=== PATIENT | female | born 1965 | race Caucasian/White ===

== ENCOUNTER 2020-12-25 09:48 | Observation (INO) ==
[2020-12-25] MEDS ORDERED: hydrALAZINE 20 MG/1 ML VIAL IV STA (10:18)
[2020-12-25] MEDS ORDERED: ASPIRIN 325 MG TABLET PO STA (10:23)
[2020-12-25 10:25] LABS: Basophils % 0.5 % (0.0-0.8); Eosinophils # 0.2 10*3/uL (0.0-0.87); Hematocrit 44.4 VOL% (35.7-47.0); Hemoglobin 14.3 GM/DL (12.0-16.0); Immature Granulocytes % 0.3 %; Immature Granulocytes Absolute 0.02 #; Lymphocytes # 1.4 10*3/uL (1.4-4.0); Lymphocytes % 21.8 % (21.3-54.2); Mean Corpuscular HGB Conc 32.2 GM/DL (32-36); Mean Corpuscular Volume 83.8 FL (87-102); Mean Platelet Volume 9.6 FL (9.6-12.0); Monocytes % 5.9 % (1.7-12.7); Neutrophils % 68.5 % (38.7-73.9); Platelet Count 260 T/CUMM (130-400); Red Cell Distribution Width 13.3 % (9.3-17.3); White Blood Count 6.2 T/CUMM (4-12)
[2020-12-25 10:41] LABS: INR 0.9; PT Patient Result 9.9 SECS (9.8-11.9); Partial Thromboplastin Time 25.7 SECS (23.9-33.8)
[2020-12-25] MEDS ORDERED: LORazepam 2 MG/1 ML VIAL IV STA (10:56)
[2020-12-25] MEDS ORDERED: LORazepam 2 MG/1 ML VIAL ONE (10:57)
[2020-12-25 11:10] LABS: Albumin 3.7 G/DL (3.4-5.0); Bilirubin,Total 0.9 MG/DL (0.2-1.0); Calcium 9.3 MG/DL (8.5-10.1); Osmolality,Calculated 277.5 MOS/KG (273-304); Potassium 3.8 MMOL/L (3.5-5.1); Total Protein 7.3 G/DL (5.0-7.5)
[2020-12-25] MEDS ORDERED: DEXTROSE 50% 25 GM/50 ML VIAL IV PRN (12:07)
[2020-12-25] MEDS ORDERED: hydrALAZINE 20 MG/1 ML VIAL IV PRN (12:07)
[2020-12-25] MEDS ORDERED: ONDANSETRON 4 MG/2 ML VIAL IV PRN (12:07)
[2020-12-25] MEDS ORDERED: GLUCAGON 1 MG VIAL IM PRN (12:07)
[2020-12-25] MEDS ORDERED: LORazepam 0.5 MG TABLET PO PRN (12:07)
[2020-12-25] MEDS ORDERED: LORazepam 1 MG TABLET PO PRN (12:29)
[2020-12-25] MEDS: ACETAMINOPHEN 325 MG TABLET PO PRN (19:30)
[2020-12-25] MEDS: ENOXAPARIN 40 MG/0.4 ML SYRINGE SUBCUT SCH (21:38)
[2020-12-26 06:05] LABS: Risk Ratio 4.53; Thyroid Stimulating Hormone 1.47 uIU/ml (0.358-3.74); VLDL CHOLESTEROL 38.4 MG/DL
[2020-12-26] MEDS ORDERED: LORazepam 2 MG/1 ML VIAL IV ONE (08:52)
[2020-12-26] MEDS ORDERED: ASPIRIN EC 325 MG TABLET PO SCH (09:00)
[2020-12-26] MEDS: ASPIRIN EC 81 MG TABLET PO SCH (09:38)
[2020-12-26] MEDS: PANTOPRAZOLE 40 MG TABLET PO SCH (09:38)
[2020-12-26] MEDS: ATORVASTATIN 40 MG TABLET PO SCH (09:38)
[2020-12-26] MEDS ORDERED: amLODIPine 5 MG TABLET PO SCH (17:00)
[2020-12-26] MEDS: amLODIPine 10 MG TABLET PO SCH (17:23)
[2020-12-26] MEDS: ENOXAPARIN 40 MG/0.4 ML SYRINGE SUBCUT SCH (21:45)
[2020-12-27 06:03] LABS: Calcium 8.7 MG/DL (8.5-10.1); Osmolality,Calculated 280.4 MOS/KG (273-304)
[2020-12-27] MEDS: ATORVASTATIN 40 MG TABLET PO SCH (08:39)
[2020-12-27] MEDS: ASPIRIN EC 81 MG TABLET PO SCH (08:39)
[2020-12-27] MEDS: amLODIPine 10 MG TABLET PO SCH (08:39)
[2020-12-27] MEDS: PANTOPRAZOLE 40 MG TABLET PO SCH (08:39)
[2020-12-27] MEDS: ENOXAPARIN 40 MG/0.4 ML SYRINGE SUBCUT SCH (20:49)
[2020-12-27] MEDS: ACETAMINOPHEN 325 MG TABLET PO PRN (20:50)
[2020-12-28] MEDS: amLODIPine 10 MG TABLET PO SCH (08:47)
[2020-12-28] MEDS: PANTOPRAZOLE 40 MG TABLET PO SCH (08:47)
[2020-12-28] MEDS: ATORVASTATIN 40 MG TABLET PO SCH (08:47)
[2020-12-28] MEDS: ASPIRIN EC 81 MG TABLET PO SCH (08:47)
[2020-12-28] MEDS: ACETAMINOPHEN 325 MG TABLET PO PRN (21:28)
[2020-12-28] MEDS: ENOXAPARIN 40 MG/0.4 ML SYRINGE SUBCUT SCH (21:30)
[2020-12-29 05:42] LABS: Basophils % 0.6 % (0.0-0.8); Eosinophils # 0.2 10*3/uL (0.0-0.87); Eosinophils % 3.6 % (0.00-10.9); Hematocrit 41.2 VOL% (35.7-47.0); Hemoglobin 13.4 GM/DL (12.0-16.0); Immature Granulocytes % 0.3 %; Immature Granulocytes Absolute 0.02 #; Lymphocytes # 1.9 10*3/uL (1.4-4.0); Lymphocytes % 28.7 % (21.3-54.2); Mean Corpuscular HGB Conc 32.5 GM/DL (32-36); Mean Corpuscular Volume 84.6 FL (87-102); Monocytes % 8.1 % (1.7-12.7); Neutrophils % 58.7 % (38.7-73.9); Platelet Count 232 T/CUMM (130-400); Red Blood Count 4.87 MC/CUMM (3.8-5.5); Red Cell Distribution Width 13.5 % (9.3-17.3); White Blood Count 6.6 T/CUMM (4-12)
[2020-12-29 06:09] LABS: Calcium 9.1 MG/DL (8.5-10.1); Osmolality,Calculated 281.4 MOS/KG (273-304)
[2020-12-29] MEDS: ASPIRIN EC 81 MG TABLET PO SCH (08:42)
[2020-12-29] MEDS: ATORVASTATIN 40 MG TABLET PO SCH (08:42)
[2020-12-29] MEDS: amLODIPine 10 MG TABLET PO SCH (08:43)
[2020-12-29] MEDS: PANTOPRAZOLE 40 MG TABLET PO SCH (08:43)
[2020-12-29 09:50] VITALS: BP 134/89
== END 2020-12-29 12:24 | disposition home or self-care (01) ==
LOC: N.EDINP 09:48 → N.ED 09:48 → SUATTDRO 12:07 → N.TELEN 13:49
PROVIDERS: ADMIT Internal Medicine; ATTEND Internal Medicine